=== PATIENT | male | born 1960 | race African-American/Black ===

== ENCOUNTER 2018-03-06 18:03 | Emergency (ER) | payer SELFPAY ==
[2018-03-06 18:28] VITALS: BP 144/83; PULSE 79; TEMP 98.1; BMI 27.8
--- NOTE | 2018-03-06 20:01 | PDOC ---
History of Present Illness - General Chief Complaint: RX Refill Stated Complaint: PRESCRIPTION Time Seen by Provider: 03/06/18 19:42 - History of Present Illness Initial Comments: 03/06/18 19:58 57-year-old male recently moved requesting medication refills. 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 Past History - Past Medical History Allergies/Adverse Reactions: Allergies Allergy/AdvReac Type Severity Reaction Status Date / Time No Known Allergies Allergy Verified 03/06/18 18:21 Home Medications: Ambulatory Orders Amlodipine Besylate [Norvasc -] 2.5 mg PO DAILY #30 tablet 03/06/18 Atorvastatin Ca [Lipitor] 80 mg PO HS #30 tab 03/06/18 Baclofen 10 mg PO TID #90 tablet 03/06/18 Escitalopram Oxalate [Lexapro -] 5 mg PO DAILY #30 tablet 03/06/18 Levetiracetam 750 mg PO BID #60 tablet 03/06/18 Lisinopril [Prinivil] 20 mg PO DAILY #30 tablet 03/06/18 Omeprazole 20 mg PO DAILY #30 tablet. 03/06/18 CVA: Yes COPD: No Diabetes: Yes HTN: Yes Psychiatric Problems: Yes (DEPRESSION) Seizures: Yes Thyroid Disease: Yes (HYPER) - Suicide/Smoking/Psychosocial Hx Smoking History: Current every day smoker Have you smoked in the past 12 months: Yes Number of Cigarettes Smoked Daily: 10 Information on smoking cessation initiated: No Hx Alcohol Use: No Drug/Substance Use Hx: No Substance Use Type: None Review of Systems - Review of Systems All Other Systems: Reviewed and Negative *Physical Exam - Vital Signs Last Vital Signs Temp Pulse Resp BP Pulse Ox 98.1 F 79 22 H 144/83 100 03/06/18 18:21 03/06/18 18:21 03/06/18 18:21 03/06/18 18:21 03/06/18 18:21 - Physical Exam Comments: 03/06/18 19:59 HEAD: NC/AT EYES: Conjuntiva clear SKIN: Normal color and temperature no lesions or rashes Medical Decision Making - Medical Decision Making 03/06/18 20:00 Family is requesting a months supply of the prior medications until he is accepted into an insurance program. I will do this for them. As a courtesy. *DC/Admit/Observation/Transfer Diagnosis at time of Disposition: Medication refill - Discharge Dispostion Disposition: HOME Condition at time of disposition: Stable Decision to Admit order: No - Prescriptions Prescriptions: Amlodipine Besylate [Norvasc -] 2.5 mg PO DAILY #30 tablet Atorvastatin Ca [Lipitor] 80 mg PO HS #30 tab Baclofen 10 mg PO TID #90 tablet Escitalopram Oxalate [Lexapro -] 5 mg PO DAILY #30 tablet Levetiracetam 750 mg PO BID #60 tablet Lisinopril [Prinivil] 20 mg PO DAILY #30 tablet Omeprazole 20 mg PO DAILY #30 tablet.dr - Referrals Referrals: Daron Flores [Non Staff, Medical] - - Patient Instructions Additional Instructions: Return to the emergency room should you have any other further medical issues. Otherwise he may follow-up with the primary care physician I provided for you. You medication has really been refilled for the next month. - Post Discharge Activity
== END 2018-03-06 20:26 | disposition home or self-care (01) ==
LOC: JERFT 18:03
DX: Z76.0 Encounter for issue of repeat prescription (principal); I10 Essential (primary) hypertension; F32.9 Major depressive disorder, single episode, unspecified; E05.90 Thyrotoxicosis, unspecified without thyrotoxic crisis or storm; R56.9 Unspecified convulsions; I69.851 Hemiplegia and hemiparesis following other cerebrovascular disease affecting right dominant side; F17.210 Nicotine dependence, cigarettes, uncomplicated; E11.9 Type 2 diabetes mellitus without complications
CPT/HCPCS: 99281-25

== ENCOUNTER 2018-07-11 10:47 | Observation (INO) | payer OTHER ==
[2018-07-11 10:55] VITALS: BMI 23.6
--- NOTE | 2018-07-11 11:43 | PDOC ---
History of Present Illness - General Chief Complaint: Injury Stated Complaint: SLIP AND FALL Time Seen by Provider: 07/11/18 11:15 - History of Present Illness Initial Comments: 07/11/18 11:40 77-year-old male with a past medical history significant for right-sided CVA he has a hemiparesis on the right side presents for evaluation after a fall. The fall was unwitnessed by his caregiver and he was found on the floor for an undetermined amount of time. It seems that his complaints are right wrist and right ankle pain. He also complains of head pain to his caregiver. He is nonverbal with me Past History - Past Medical History Allergies/Adverse Reactions: Allergies Allergy/AdvReac Type Severity Reaction Status Date / Time No Known Allergies Allergy Verified 07/11/18 10:55 Home Medications: Ambulatory Orders Amlodipine Besylate [Norvasc -] 2.5 mg PO DAILY #30 tablet 03/06/18 Atorvastatin Ca [Lipitor] 80 mg PO HS #30 tab 03/06/18 Baclofen 10 mg PO TID #90 tablet 03/06/18 Escitalopram Oxalate [Lexapro -] 5 mg PO DAILY #30 tablet 03/06/18 Levetiracetam 750 mg PO BID #60 tablet 03/06/18 Lisinopril [Prinivil] 20 mg PO DAILY #30 tablet 03/06/18 Omeprazole 20 mg PO DAILY #30 tablet. 03/06/18 Metformin HCl [Metformin HCl ER] 500 mg PO BID 07/11/18 CVA: Yes COPD: No Diabetes: Yes HTN: Yes Psychiatric Problems: Yes (DEPRESSION) Seizures: Yes Thyroid Disease: Yes (HYPER) - Suicide/Smoking/Psychosocial Hx Smoking History: Never smoked Have you smoked in the past 12 months: Yes Number of Cigarettes Smoked Daily: 10 Hx Alcohol Use: No Drug/Substance Use Hx: No Substance Use Type: None Review of Systems - Review of Systems Able to Perform ROS?: No *Physical Exam - Vital Signs Last Vital Signs Temp Pulse Resp BP Pulse Ox 98.5 F 95 H 18 140/79 100 07/11/18 10:52 07/11/18 10:52 07/11/18 10:52 07/11/18 10:52 07/11/18 10:52 - Physical Exam Comments: 07/11/18 11:40 HEAD: NC/AT EYES: Conjuntiva clear Ears: Canals and TM's normal NOSE: No d/c THROAT: Moist mucous membrances, oral pharanx clear, uvula midline NECK: Supple without adenopathy CARDIAC: S1 S2 LUNGS: CTA Full and Equal breath sounds ABDOMEN: Soft NT ND MS: Full ROM in all joints without edema NEUROLOGIC: Right-sided hemiparesis right wrist appears tender without deformity right ankle appears nontender SKIN: Normal color and temperature no lesions or rashes Moderate Sedation - Procedure Monitoring Vital Signs: Procedure Monitoring Vital Signs Temperature 98.5 F 07/11/18 10:52 Pulse Rate 95 H 07/11/18 10:52 Respiratory Rate 18 07/11/18 10:52 Blood Pressure 140/79 07/11/18 10:52 O2 Sat by Pulse Oximetry (%) 100 07/11/18 10:52 ED Treatment Course - RADIOLOGY Radiology Studies Ordered: Category Date Time Status HEAD CT WITHOUT CONTRAST [CT] Stat CT Scan 07/11/18 11:30 Ordered ANKLE-RIGHT [RAD] Stat Radiology 07/11/18 11:30 Ordered WRIST- RIGHT [RAD] Stat Radiology 07/11/18 11:30 Ordered Medical Decision Making - Medical Decision Making 07/11/18 11:41 Unfortunately at this point he is too much for his caregiver she is requesting social admission and placement urgency room. An work him up from there. *DC/Admit/Observation/Transfer Diagnosis at time of Disposition: Fall - Referrals Referrals: Isaak Lopez [Primary Care Provider] - - Patient Instructions - Post Discharge Activity
--- NOTE | 2018-07-11 11:53 | PDOC ---
*Physical Exam - Vital Signs Last Vital Signs Temp Pulse Resp BP Pulse Ox 98.5 F 95 H 18 140/79 100 07/11/18 10:52 07/11/18 10:52 07/11/18 10:52 07/11/18 10:52 07/11/18 10:52 - Physical Exam General Appearance: Yes: Nourished, Appropriately Dressed, Other (non-verbal). No: Apparent Distress ED Treatment Course - LABORATORY CBC & Chemistry Diagram: 07/11/18 13:12 07/11/18 11:55 Medical Decision Making - Medical Decision Making 07/11/18 11:51 Sign out received from [facility]. Pt was upgraded from [facility]. Pt to be evaluated for frequent falls. Pt was found down at home by his nurse care manager and he was down for an unknown amount of time. -Labs, CT, X-rays ordered from [facility] -Pt will most likely need admission for frequent falls. *DC/Admit/Observation/Transfer Diagnosis at time of Disposition: Fall Qualifiers: Encounter type: initial encounter Qualified Code(s): W19.XXXA - Unspecified fall, initial encounter - Discharge Dispostion Condition at time of disposition: Stable Decision to Admit order: Yes - Referrals Referrals: Isaak Lopez [Primary Care Provider] - - Patient Instructions - Post Discharge Activity
[2018-07-11 13:23] LABS: BASO % 0.5 % (0-2.0); EOS % 2.7 % (0-4.5); HEMATOCRIT 34.2 % (35.4-49); HEMOGLOBIN 11.1 GM/dL (11.7-16.9); LYMPH % 29.9 % (8-40); MCH 25.9 pg (25.7-33.7); MCHC 32.5 g/dl (32.0-35.9); MEAN CELL VOLUME 79.6 fl (80-96); MEAN PLT VOLUME 7.6 fl (7.5-11.1); MONO % 5.5 % (3.8-10.2); NEUT % 61.4 % (42.8-82.8); PLATELET COUNT 272 K/MM3 (134-434); RDW 13.7 % (11.9-15.9); WHITE BLOOD COUNT 9.9 K/mm3 (4.0-10.0)
[2018-07-11 13:41] LABS: INR 1.08 (0.83-1.09); PROTHROMBIN TIME (PATIENT) 12.8 SEC (9.7-13.0)
[2018-07-11 13:53] LABS: BLOOD UREA NITROGEN 18 mg/dL (7-18); GLUCOSE,RANDOM 67 mg/dL (74-106)
[2018-07-11 13:54] LABS: ALBUMIN 4.1 g/dl (3.4-5.0); ALK PHOS 113 U/L (45-117); ANION GAP 4 MMOL/L (8-16); BILIRUBIN,TOTAL 0.3 mg/dL (0.2-1); CALCIUM 9.2 mg/dL (8.5-10.1); CHLORIDE 107 mmol/L (98-107); CO2 29 mmol/L (21-32); CREATININE 0.9 mg/dL (0.55-1.3); SGOT/AST 18 U/L (15-37); SGPT/ALT 46 U/L (13-61); SODIUM 140 mmol/L (136-145); TOT PROT 7.8 g/dl (6.4-8.2)
--- NOTE | 2018-07-11 14:53 | PDOC ---
*Physical Exam - Vital Signs Last Vital Signs Temp Pulse Resp BP Pulse Ox 98.5 F 95 H 18 140/79 100 07/11/18 10:52 07/11/18 10:52 07/11/18 10:52 07/11/18 10:52 07/11/18 10:52 ED Treatment Course - LABORATORY CBC & Chemistry Diagram: 07/11/18 13:12 07/11/18 11:55 - ADDITIONAL ORDERS Additional order review: Laboratory Results 07/11/18 07/11/18 11:55 11:55 PT with INR 12.80 INR 1.08 Sodium 140 Potassium 4.0 Chloride 107 Carbon Dioxide 29 Anion Gap 4 L BUN 18 Creatinine 0.9 Creat Clearance w eGFR > 60 Random Glucose 67 L Calcium 9.2 Total Bilirubin 0.3 AST 18 ALT 46 Alkaline Phosphatase 113 Creatine Kinase 124 Troponin I < 0.02 Total Protein 7.8 Albumin 4.1 07/11/18 13:12 RBC 4.30 MCV 79.6 L MCHC 32.5 RDW 13.7 MPV 7.6 Neutrophils % 61.4 Lymphocytes % 29.9 Monocytes % 5.5 Eosinophils % 2.7 Basophils % 0.5 Medical Decision Making - Medical Decision Making 07/11/18 14:51 Pt seen by Midlevel Provider under my direct supervision Pt interviewed and examined Ancillary studies reviewed I agree with plan as outlined by Midlevel Provider *DC/Admit/Observation/Transfer Diagnosis at time of Disposition: Fall - Referrals Referrals: Isaak Lopez [Primary Care Provider] - - Patient Instructions - Post Discharge Activity
--- NOTE | 2018-07-11 18:03 | EKG ---
Test Reason : Blood Pressure : / mmHG Vent. Rate : 065 BPM Atrial Rate : 065 BPM P-R Int : 190 ms QRS Dur : 086 ms QT Int : 408 ms P-R-T Axes : 065 015 019 degrees QTc Int : 424 ms NORMAL SINUS RHYTHM NORMAL ECG NO PREVIOUS ECGS AVAILABLE Confirmed by ANDRAE GRECO, JOMAR ([id number]) on 07/11/2018 6:03:39 PM Referred By: Confirmed By:JOMAR ABEBE MD
[2018-07-11] MEDS: BACLOFEN 10 MG TABLET (FP) PO SCH (22:22)
[2018-07-11] MEDS: ATORVASTATIN CA 80 MG TABLET (FP) PO SCH (22:22)
[2018-07-11] MEDS: levETIRAcetam 250 MG TABLET (FP) PO SCH (22:22)
[2018-07-11] MEDS: HEPARIN NA (PORCINE) 5,000 UNITS/ML 1ML VIAL SQ SCH (22:22)
[2018-07-11] MEDS: INSULIN SLIDING SCALE (NOVOLOG) 1 VIAL SQ SCH (22:25)
[2018-07-12] MEDS ORDERED: INSULIN (NOVOLOG) ASPART 100 UNITS/ML 10ML VIAL ONE (06:02)
[2018-07-12] MEDS: BACLOFEN 10 MG TABLET (FP) PO SCH ×3 (06:15→22:37)
[2018-07-12] MEDS: INSULIN SLIDING SCALE (NOVOLOG) 1 VIAL SQ SCH ×4 (06:16→22:37)
[2018-07-12 08:31] LABS: HEMATOCRIT 32.4 % (35.4-49); HEMOGLOBIN 10.5 GM/dL (11.7-16.9); MCH 25.6 pg (25.7-33.7); MCHC 32.5 g/dl (32.0-35.9); MEAN CELL VOLUME 78.8 fl (80-96); MEAN PLT VOLUME 7.6 fl (7.5-11.1); PLATELET COUNT 265 K/MM3 (134-434); RBC 4.12 M/mm3 (4.00-5.60); WHITE BLOOD COUNT 8.8 K/mm3 (4.0-10.0)
[2018-07-12 09:00] LABS: ANION GAP 7 MMOL/L (8-16); BLOOD UREA NITROGEN 18 mg/dL (7-18); CALCIUM 9.3 mg/dL (8.5-10.1); CHLORIDE 108 mmol/L (98-107); CO2 26 mmol/L (21-32); CREATININE 0.8 mg/dL (0.55-1.3); GLUCOSE,RANDOM 88 mg/dL (74-106); POTASSIUM 4.2 mmol/L (3.5-5.1); SODIUM 141 mmol/L (136-145)
[2018-07-12] MEDS ORDERED: LISINOPRIL 20 MG TABLET (FP) PO SCH ×2 (10:00→13:24)
[2018-07-12] MEDS ORDERED: PT OWN MED DRAWER 7, Y5N ONE (10:52)
[2018-07-12] MEDS: levETIRAcetam 250 MG TABLET (FP) PO SCH ×2 (10:59→22:36)
[2018-07-12] MEDS: ESCITALOPRAM OXALATE 10 MG TABLET (FP) PO SCH (11:00)
[2018-07-12] MEDS: amLODIPine BESYLATE 2.5 MG TABLET (FP) PO SCH (11:01)
[2018-07-12] MEDS: PANTOPRAZOLE 20 MG TABLET (FP) PO SCH (11:01)
[2018-07-12] MEDS: HEPARIN NA (PORCINE) 5,000 UNITS/ML 1ML VIAL SQ SCH ×2 (11:01→22:36)
--- NOTE | 2018-07-12 13:18 | HP ---
Admitting History and Physical - [facility] History of Present Illness: 7-year-old male with a past medical history significant for right-sided CVA he has a hemiparesis on the right side presents for evaluation after a fall. The fall was unwitnessed by his caregiver and he was found on the floor for an undetermined amount of time. It seems that his complaints are right wrist and right ankle pain. He also complains of head pain to his caregiver. patient only verbalizes by saying "one one" History Source: Medical Record - Past Medical History Cardiovascular: Yes: Other (cva) - Smoking History Smoking history: Never smoked Have you smoked in the past 12 months: Yes Aproximately how many cigarettes per day: 10 - Alcohol/Substance Use Hx Alcohol Use: No Home Medications - Allergies Allergies/Adverse Reactions: Allergies Allergy/AdvReac Type Severity Reaction Status Date / Time No Known Allergies Allergy Verified 07/11/18 10:55 - Home Medications Home Medications: Ambulatory Orders Amlodipine Besylate [Norvasc -] 2.5 mg PO DAILY #30 tablet 03/06/18 Atorvastatin Ca [Lipitor] 80 mg PO HS #30 tab 03/06/18 Baclofen 10 mg PO TID #90 tablet 03/06/18 Escitalopram Oxalate [Lexapro -] 5 mg PO DAILY #30 tablet 03/06/18 Levetiracetam 750 mg PO BID #60 tablet 03/06/18 Lisinopril [Prinivil] 20 mg PO DAILY #30 tablet 03/06/18 Omeprazole 20 mg PO DAILY #30 tablet. 03/06/18 Metformin HCl [Metformin HCl ER] 500 mg PO BID 07/11/18 Review of Systems Unable to obtain ROS, reason: unable to verbalize Physical Examination Vital Signs: Vital Signs Temperature 98.0 F 07/12/18 06:00 Pulse Rate 61 07/12/18 06:00 Respiratory Rate 20 07/12/18 06:00 Blood Pressure 114/55 L 07/12/18 06:00 O2 Sat by Pulse Oximetry (%) 100 07/12/18 04:34 Cardiovascular: Yes: Regular Rate and Rhythm, S1, S2 Respiratory: Yes: CTA Bilaterally Gastrointestinal: Yes: Normal Bowel Sounds, Soft Neurological: Yes: Pre-Existing Deficit (right sided hemiparesis) Labs: CBC, BMP 07/12/18 07:35 07/12/18 07:35 Imaging - Results X-ray: Report Reviewed Cat Scan: Report Reviewed (no fracture no infarct) Problem List - Problems (1) Fall Assessment/Plan: neurology consult PT eval might need placment dvt ppx chgeck rpr,b12,tsh, Code(s): W19.XXXA - UNSPECIFIED FALL, INITIAL ENCOUNTER Qualifiers: Encounter type: initial encounter Qualified Code(s): W19.XXXA - Unspecified fall, initial encounter (2) Anemia Assessment/Plan: iron panel Code(s): D64.9 - ANEMIA, UNSPECIFIED (3) CVA (cerebral vascular accident) Assessment/Plan: asa,statin dvt ppx Code(s): I63.9 - CEREBRAL INFARCTION, UNSPECIFIED (4) Diabetes Assessment/Plan: bgm hgba1c sliding scale hold oral hypoglycemic for now Code(s): E11.9 - TYPE 2 DIABETES MELLITUS WITHOUT COMPLICATIONS Qualifiers: Diabetes mellitus type: type 2 (5) HTN (hypertension) Assessment/Plan: on prinivil hold for now given low BP Code(s): I10 - ESSENTIAL (PRIMARY) HYPERTENSION
--- NOTE | 2018-07-12 15:34 | DS ---
Physical Examination Vital Signs: Vital Signs Temperature 98.4 F 07/12/18 15:20 Pulse Rate 65 07/12/18 15:20 Respiratory Rate 20 07/12/18 15:20 Blood Pressure 115/67 07/12/18 15:20 O2 Sat by Pulse Oximetry (%) 100 07/12/18 04:34 Constitutional: Yes: Calm Cardiovascular: Yes: Regular Rate and Rhythm, S1, S2 Respiratory: Yes: CTA Bilaterally Gastrointestinal: Yes: Normal Bowel Sounds, Soft Edema: No Neurological: Yes: Alert, Pre-Existing Deficit (right sided hemiparesis) Labs: CBC, BMP 07/12/18 07:35 07/12/18 07:35 Discharge Summary Reason For Visit: FALL Current Active Problems Anemia (Acute) CVA (cerebral vascular accident) (Acute) Diabetes (Acute) Fall (Acute) HTN (hypertension) (Acute) Hospital Course: Chief Complaint: found on flooor History of Present Illness: 57-year-old male with a past medical history significant for right-sided CVA he has a hemiparesis on the right side presents for evaluation after a fall. The fall was unwitnessed by his caregiver and he was found on the floor for an undetermined amount of time. It seems that his complaints are right wrist and right ankle pain. He also complains of head pain to his caregiver. patient only verbalizes by saying "one one" xray of elbow wrist and ankle no acute fracture ct head no infarct Condition: Stable - Instructions Referrals: Isaak Lopez [Primary Care Provider] - Disposition: SNF FACILITY - Home Medications Comprehensive Discharge Medication List: Ambulatory Orders Amlodipine Besylate [Norvasc -] 2.5 mg PO DAILY #30 tablet 03/06/18 Atorvastatin Ca [Lipitor] 80 mg PO HS #30 tab 03/06/18 Baclofen 10 mg PO TID #90 tablet 03/06/18 Escitalopram Oxalate [Lexapro -] 5 mg PO DAILY #30 tablet 03/06/18 Levetiracetam 750 mg PO BID #60 tablet 03/06/18 Lisinopril [Prinivil] 20 mg PO DAILY #30 tablet 03/06/18 Omeprazole 20 mg PO DAILY #30 tablet 03/06/18 Metformin HCl [Metformin HCl ER] 500 mg PO BID 07/11/18
[2018-07-12] MEDS: ATORVASTATIN CA 80 MG TABLET (FP) PO SCH (22:36)
[2018-07-13] MEDS: INSULIN SLIDING SCALE (NOVOLOG) 1 VIAL SQ SCH ×2 (06:10→11:47)
[2018-07-13] MEDS: BACLOFEN 10 MG TABLET (FP) PO SCH (06:10)
[2018-07-13 08:27] LABS: ALBUMIN 3.5 g/dl (3.4-5.0); ALK PHOS 106 U/L (45-117); ANION GAP 5 MMOL/L (8-16); BILIRUBIN,TOTAL 0.3 mg/dL (0.2-1); BLOOD UREA NITROGEN 17 mg/dL (7-18); CALCIUM 8.6 mg/dL (8.5-10.1); CHLORIDE 107 mmol/L (98-107); CO2 27 mmol/L (21-32); CREATININE 0.9 mg/dL (0.55-1.3); GLUCOSE,RANDOM 100 mg/dL (74-106); POTASSIUM 4.2 mmol/L (3.5-5.1); SGOT/AST 25 U/L (15-37); SGPT/ALT 48 U/L (13-61); SODIUM 139 mmol/L (136-145); TOT PROT 7.3 g/dl (6.4-8.2)
--- NOTE | 2018-07-13 10:12 | CONSULT ---
Consult - text type - Consultation Consultation Note: NEUROLOGY CONSULT GREATLY APPRECIATED: This 57 yo AA RH male with pmhx of HTN, HLD, DM type2, and previous L CVA with R hemiparesis, aphasia and seizure disorder presents yesterday after being found on floor by caregiver for unknown amount of time. Per ED, initial complaints were right wrist pain, right ankle pain and headache as per the caregiver. Pt unable to provide history or series of events, pointing to his right arm and right leg saying "one, one." Spoke with brother Gokul and enoc Walters, who is caregiver for patient. She reports he had a stroke approximately 1 1/2 years ago in [place]. He finished [employer] and was previously working as a rn pool. Since that time has required a higher level of care and lives with them. She reports assisting him with most ADL's including medication administration, showering, cooking, and bathing. She reports he is only able to respond with simple "yes" or "mhmm" at baseline and can follow simple commands, self feed and self toilet. Medications include: amlodipine, atorvastatin, baclofen, escitalopram, levetiracetam (500 mg BID), lisinopril, omeprazole, metformin Head CT (reviewed): large old L MCA infarct On admission: BS =67 B12= 566 MCV= 79.6 COLLINS: BP 100-120/50-60. Cor Reg. Neg Bruit. No evidence of head trauma. Robert walker at bedside. NEURO EXAM: Mentation/Speech: awake, alert, oriented to name. Responds with "yes, mhmm, one." Difficulty following 2 step commands. CN II- XII: EOM with L hypertropic exotropia with R hypertorpic isotropia. Gag ok. + glabella Motor: R sided hemiparesis. Strength otherwise normal. Hyperreflexic on R side, but normal reflexes on L. Toes downgoing. Coordination: no FTN dystaxia. Sensation: Withdraws to pinch in all four's Gait: R circumduction. Unsteady. Impression: 1. Probable Seizure (less likely orthostatic hypotension, hypoglycemic event) 2. B/L Cerebral dysfunction (OMS, chronic microvascular changes) 3. Chronic L MCA infarct with right hemiparesis and seizures. Suggest: Empirically increase levetiracetam to 750 mg PO BID Await leveteracitam level, Iron studies, A1c. Add RPR, TSH (studies for OMS); CRP, ESR, Uric acid level (for head pain, r/o gout), UA, C&S Orthostatic BP's, BS checks EEG monitoring Pt with robert-walker for gait Pt may require higher level of care (SNF) Neuro f/u as out patient Thank you very much, Maikel Sanchez MD
[2018-07-13] MEDS: HEPARIN NA (PORCINE) 5,000 UNITS/ML 1ML VIAL SQ SCH (10:13)
--- NOTE | 2018-07-13 10:13 | HOL ---
Hook-up date: 2018-07-11 15:21:00 Duration: 23:56:00 Test Indications: FALLS Medications: 78983 QRS complexes 2 Ventricular ectopics which represent <1 % of total QRS comp. 2 Supraventricular ectopics which represent <1 % of total QRS comp. * Paced QRS complexs which represent % of total QRS comp. 3 % of Time Classified as Noise VENTRICULAR ECTOPY 2 Isolated 0 Bigeminal Cycles 0 Couplets 0 Runs 0 Beats in Runs * Beats LONGEST at * BPM at :: -- * Beats FASTEST at * BPM at :: -- SUPRAVENTRICULAR ECTOPY 2 Isolated 0 Couplets 0 Runs 0 Beats in Runs * Beats LONGEST at * BPM at :: -- * Beats FASTEST at * BPM at :: -- HEART RATES 47 MIN at 18:04:57 2018-07-11 60 AVG 97 MAX at 09:10:18 2018-07-12 LONGEST RR 1.280 secs at 01:24:26 2018-07-12 The underlying rhythm is normal sinus. Rare single APCs and VPCs. No significant pauses. No sustained arrhyhmias. No diary entries. Confirmed by FLO GRECO, EDEL ([id number]) on 07/13/2018 10:12:30 AM Referred By: VLADIMIR GROVES DR Overread By: EDEL ROSSI MD
[2018-07-13] MEDS: PANTOPRAZOLE 20 MG TABLET (FP) PO SCH (10:14)
[2018-07-13] MEDS: amLODIPine BESYLATE 2.5 MG TABLET (FP) PO SCH (10:14)
[2018-07-13] MEDS: levETIRAcetam 250 MG TABLET (FP) PO SCH (10:14)
[2018-07-13] MEDS: ESCITALOPRAM OXALATE 10 MG TABLET (FP) PO SCH (10:14)
--- NOTE | 2018-07-13 10:54 | PN ---
Progress Note, Physician Chief Complaint: s/p fall Hx of CVA History of Present Illness: came in for unwitnessed fall labs unremarkable seen by Neurology and pHysical therapy All imaging workup unremarkable Going to SNF today - Current Medication List Current Medications: Active Medications Amlodipine Besylate (Norvasc -) 2.5 mg PO DAILY [facility] Last Admin: 07/13/18 10:14 Dose: 2.5 mg Atorvastatin Calcium (Lipitor -) 80 mg PO HS [facility] Last Admin: 07/12/18 22:36 Dose: 80 mg Baclofen (Lioresal -) 10 mg PO TID [facility] Last Admin: 07/13/18 06:10 Dose: 10 mg Escitalopram Oxalate (Lexapro -) 5 mg PO DAILY [facility] Last Admin: 07/13/18 10:14 Dose: 5 mg Heparin Sodium (Porcine) (Heparin -) 5,000 unit SQ BID [facility] Last Admin: 07/13/18 10:13 Dose: 5,000 unit Insulin Aspart (Novolog Vial Sliding Scale -) 1 vial SQ ACHS [facility]; Protocol Last Admin: 07/13/18 06:10 Dose: Not Given Levetiracetam (Keppra -) 750 mg PO BID [facility] Last Admin: 07/13/18 10:14 Dose: 750 mg Lisinopril (Prinivil) 20 mg PO DAILY [facility] Last Admin: 07/13/18 10:14 Dose: 20 mg Pantoprazole Sodium (Protonix -) 20 mg PO DAILY [facility] Last Admin: 07/13/18 10:14 Dose: 20 mg - Objective Vital Signs: Vital Signs Temperature 98.2 F 07/13/18 06:00 Pulse Rate 59 L 07/13/18 06:00 Respiratory Rate 20 07/13/18 06:00 Blood Pressure 100/64 07/13/18 06:00 O2 Sat by Pulse Oximetry (%) 100 07/13/18 04:00 Constitutional: Yes: Well Nourished, No Distress, Calm Cardiovascular: Yes: Regular Rate and Rhythm Respiratory: Yes: Regular Gastrointestinal: Yes: WNL Genitourinary: Yes: WNL Musculoskeletal: Yes: Muscle Weakness Extremities: Yes: Other (right sided weakness) Edema: No Peripheral Pulses WNL: Yes Neurological: Yes: Alert, Pre-Existing Deficit, Weakness (Right sided weakness 2 /2 to previous CVA) Psychiatric: Yes: Alert Labs: CBC, BMP 07/13/18 06:20 INR, PTT INR 1.08 (0.83-1.09) 07/11/18 11:55 Problem List - Problems (1) Anemia Assessment/Plan: -Iron profile, folate and thyroid profile pending -B 12 unremarkable -stool OB -monitor trend upon discharge Code(s): D64.9 - ANEMIA, UNSPECIFIED (2) Fall Assessment/Plan: -Workup negative -Seen by Neurology -Physical therapy -safety precautions Code(s): W19.XXXA - UNSPECIFIED FALL, INITIAL ENCOUNTER Qualifiers: Encounter type: initial encounter Qualified Code(s): W19.XXXA - Unspecified fall, initial encounter Assessment/Plan see problem list Physical therapy
[2018-07-13 12:22] LABS: URINE APPEARANCE CLEAR; URINE BILIRUBIN NEGATIVE (<2.0 mg/dL); URINE COLOR STRAW; URINE GLUCOSE (UA) NEGATIVE (NEGATIVE); URINE KETONE NEGATIVE (NEGATIVE); URINE LEUK ESTERASE NEGATIVE (NEGATIVE); URINE NITRITE NEGATIVE (NEGATIVE); URINE PROTEIN NEGATIVE (NEGATIVE); URINE UROBILINOGEN NEGATIVE mg/dL (0.2-1.0)
[2018-07-13 12:27] VITALS: BP 125/72; PULSE 63; TEMP 97.9
== END 2018-07-13 12:18 ==
LOC: JER 10:47 → JERFT 10:47 → JERBED 15:11 → INTOOBSV 15:11 → J5S 18:22
PROVIDERS: ADMIT Family Medicine; ATTEND Family Medicine
PROC: 3E013GC Introduction of Other Therapeutic Substance into Subcutaneous Tissue, Percutaneous Approach (ICD-10-PCS; principal; 2018-07-11)
DX: Z04.3 Encounter for examination and observation following other accident (principal); D64.9 Anemia, unspecified; I69.351 Hemiplegia and hemiparesis following cerebral infarction affecting right dominant side; E11.9 Type 2 diabetes mellitus without complications; I10 Essential (primary) hypertension; F32.9 Major depressive disorder, single episode, unspecified; G40.909 Epilepsy, unspecified, not intractable, without status epilepticus; E05.90 Thyrotoxicosis, unspecified without thyrotoxic crisis or storm; E78.5 Hyperlipidemia, unspecified; R51 Headache; G93.89 Other specified disorders of brain; Z79.84 Long term (current) use of oral hypoglycemic drugs; W19.XXXA Unspecified fall, initial encounter; Z91.81 History of falling; Y93.9 Activity, unspecified; Y92.129 Unspecified place in nursing home as the place of occurrence of the external cause
CPT/HCPCS: 36415; 70450-TC; 73070-TC-RT-FY; 73110-TC-RT-FY; 73610-TC-RT-FY; 80048; 80053; 80177; 81003; 82550; 82607; 82728; 82747; 82962; 83036; 83540; 83550; 84484; 85014; 85025; 85027; 85610; 86140; 93005; 93010; 93225; 93226; 96372; 97116-GP; 97161-GP; 99283-25; G0378; J0475; J1644